=== PATIENT | female | born 1985 ===

== ENCOUNTER 2018-05-02 12:30 | Inpatient (IN) ==
[2018-05-02 11:59] LABS: Basophils % 0.1 %; Eosinophils % 0.5 %; Hematocrit 32.8 % (35.3-44.9); Hemoglobin 10.5 g/dL (11.5-15.4); Immature Granulocytes % 0.6 % (0-4); Lymphocytes # 1.8 K/mcL (0.6-4.6); Mean Corpuscular Hemoglobin 28.5 pg (28.0-33.3); Mean Corpuscular Volume 88.9 fL (83.0-100.0); Mean Platelet Volume 10.9 fL (9.4-12.4); Monocytes # 0.6 K/mcL (0.0-1.3); Monocytes % 6.8 %; Neutrophils # 6.2 K/mcL (1.6-8.9); Platelet Count 257 K/mcL (140-400); Red Blood Count 3.69 M/mcL (3.82-4.97); Red Cell Distribution Width 13.8 % (11.5-14.5)
[2018-05-02 12:05] LABS: Bilirubin,Urine Negative (Negative); Blood,Urine Negative (Negative); Color,Urine Yellow (Yellow); Glucose,Urine (UA) Normal (Normal); Ketones,Urine Negative (Negative); Leukocyte Esterase,Urine Negative (Negative); Nitrite,Urine Negative (Negative); Protein,Urine Negative (Neg-Trace); Specific Gravity,Urine 1.009 (1.010-1.025); Urobilinogen,Urine Normal (Normal)
[2018-05-02 12:06] LABS: Bacteria,Urine Moderate per hpf (None-Few); Hyaline Casts,Urine None Seen per lpf (None-Few); RBC,Urine 0-3 per hpf (0-3); Squamous Epithelial Cell,Urine Many per lpf (None-Few)
[2018-05-02 12:09] LABS: Clarity,Urine Hazy (Clear)
[2018-05-02 12:16] LABS: Amphetamine Screen,Urine Negative ng/mL (Cutoff=1000); Barbiturate Screen,Urine Negative ng/mL (Cutoff=200); Benzodiazepines Screen,Urine Negative ng/mL (Cutoff=200); Cannabinoid Screen,Urine Negative ng/mL (Cutoff = 50); Cocaine Screen,Urine Negative ng/mL (Cutoff= 300); Creatinine,Urine 77 mg/dL; Opiate Screen,Urine Negative ng/mL (Cutoff=300); Phencyclidine Screen,Urine Negative ng/mL (Cutoff=25); Protein/Creatinine Ratio,Urine 0.16 mg/mg (0.00-0.20)
[2018-05-02 12:27] LABS: Alanine Aminotransferase 9 Units/L (7-52); Aspartate Amino Transferase 10 Units/L (13-39); BUN/Creatinine Ratio 13 (6-26); Blood Urea Nitrogen 6 mg/dL (6-20); Lactate Dehydrogenase 103 Units/L (140-271); Uric Acid 3.4 mg/dL (2.3-7.6); eGFR For Non-African Americans > 60 (> 60)
[~2018-05-02 12:30] MED LIST: *HR* Nalbuphine 10 MG/ML AMPUL IVP PRN; Famotidine 20 MG/2 ML VIAL IVP PRN; Metoclopramide 10 MG/2 ML VIAL IVP PRN; Naloxone 0.4 MG/ML INJ IVP PRN; Ondansetron 4 MG/2 ML VIAL IVP PRN; Ringers Solution, Lactated 1,000 ML IVC SCH
--- NOTE | 2018-05-02 13:39 | OB/GYN Progress Note ---
Date of Encounter: 05/02/18 Time of Encounter: 13:38 - Assessment and Plan (1) 38 weeks gestation of Status: Acute 32 y/o @ 38+1 weeks presented to L&D for tox eval, her pressures in the office were in the severe range but on L&D, her pressures were normal, patient has polyhydramnios and we were unable to get a reactive tracing as it was difficult to trace heart rate, tox labs normal, patient transferred t the office for BPP which was 11/24. Objective - Vital Signs Vital Signs: Intake and Output 05/01/18 05/02/18 05/02/18 23:59 07:59 15:59 Other: Weight 103.7 kg Patient Weight 05/02/18 23:59 Weight 103.7 kg - Labs Labs: Abnormal lab results RBC 3.69 M/mcL (3.82-4.97) L 05/02/18 11:40 Hgb 10.5 g/dL (11.5-15.4) L 05/02/18 11:40 Hct 32.8 % (35.3-44.9) L 05/02/18 11:40 Creatinine 0.46 mg/dL (0.60-1.20) L 05/02/18 11:40 AST 10 Units/L (13-39) L 05/02/18 11:40 Lactate Dehydrogenase 103 Units/L (140-271) L 05/02/18 11:40 Ur Specimen Adequacy See below A 05/02/18 11:40 Urine Clarity Hazy (Clear) A 05/02/18 11:40 Ur Specific [place] 1.009 (1.010-1.025) L 05/02/18 11:40 Ur Squamous Epith Cells Many per lpf (None-Few) H 05/02/18 11:40 Urine Bacteria Moderate per hpf (None-Few) H 05/02/18 11:40
== END 2018-05-02 17:04 | disposition other institution (70) | DRG 833 ==
LOC: 1NENULAB
PROVIDERS: ADMIT Student in an Organized Health Care Education/Training Program; ATTEND Student in an Organized Health Care Education/Training Program

== ENCOUNTER 2018-05-08 07:05 | Inpatient (IN) ==
[2018-05-08] MEDS ORDERED: Metoclopramide 10 MG/2 ML VIAL IVP PRN (07:37)
[2018-05-08] MEDS ORDERED: Famotidine 20 MG/2 ML VIAL IVP PRN (07:37)
[2018-05-08] MEDS ORDERED: *HR* Nalbuphine 10 MG/ML AMPUL IVP PRN (07:37)
[2018-05-08] MEDS ORDERED: Naloxone 0.4 MG/ML INJ IVP PRN ×3 (07:37→20:46)
[2018-05-08] MEDS ORDERED: Ondansetron 4 MG/2 ML VIAL IVP PRN ×3 (07:37→20:44)
[2018-05-08] MEDS ORDERED: miSOPROStol 25 MCG TABLET VG PRN (07:55)
[2018-05-08 08:06] LABS: Basophils % 0.1 %; Eosinophils % 0.4 %; Hematocrit 32.9 % (35.3-44.9); Hemoglobin 10.7 g/dL (11.5-15.4); Immature Granulocytes % 0.6 % (0-4); Lymphocytes # 1.9 K/mcL (0.6-4.6); Lymphocytes % 21.4 %; Mean Corpuscular HGB Conc 32.5 g/dL (31.6-35.5); Mean Corpuscular Hemoglobin 28.8 pg (28.0-33.3); Mean Corpuscular Volume 88.4 fL (83.0-100.0); Mean Platelet Volume 10.9 fL (9.4-12.4); Monocytes # 0.6 K/mcL (0.0-1.3); Monocytes % 6.1 %; Neutrophils # 6.5 K/mcL (1.6-8.9); Platelet Count 263 K/mcL (140-400); Red Blood Count 3.72 M/mcL (3.82-4.97); Red Cell Distribution Width 13.7 % (11.5-14.5); Segmented Neutrophils % 71.4 %
[2018-05-08] MEDS: Ringers Solution, Lactated 1,000 ML IVC SCH ×2 (08:22→16:06)
[2018-05-08 08:46] LABS: Amphetamine Screen,Urine Negative ng/mL (Cutoff=1000); Barbiturate Screen,Urine Negative ng/mL (Cutoff=200)
[2018-05-08 08:47] LABS: Benzodiazepines Screen,Urine Negative ng/mL (Cutoff=300); Cannabinoid Screen,Urine Negative ng/mL (Cutoff = 50); Cocaine Screen,Urine Negative ng/mL (Cutoff= 300); Opiate Screen,Urine Negative ng/mL (Cutoff=300); Phencyclidine Screen,Urine Negative ng/mL (Cutoff=25)
--- NOTE | 2018-05-08 09:36 | OB/GYN History & Physical ---
Date of Encounter: 05/08/18 Time of Encounter: 09:35 Assessment and Plan (1) 39 weeks gestation of Current visit: Yes Status: Acute 32 y/o @ 39 weeks, IOL for polyhydramnios GBS- Plan: Cytotec given @ 8:15AM, will re evaluate after 4hrs, will AROM with advanced dilation, anticipate , ok for epidural if she desires History of Present Illness HPI: Ms. Culver is a 32 year old female @ 39+0 weeks who presents to L&D for IOL due to polyhydramnios. She does not report LOF, VB, having some contractions, feels good FM, GBS neg. Past Med Surg Social Fam HX - Past Medical History Medical history: non-contributory Additional medical history: broken tailbone in due to fall, slight scol iosis Psychiatric history: no psych history - Past Surgical History Surgical History: non-contributory Additional surgical history: wisdom teeth extraction, fatty tumor removed - Social History Smoking Status: Former smoker Alcohol use: none Drug use: none - Family History Father Living Status: Still Living Hx Family Cardiac Disorders: Yes (heart disease, HTN) Hx Family Respiratory Disorders: Yes (ASTHMA, COPD) Hx Family Cancer: Yes (lung) Hx Family GI Disorders: No Hx Family Endocrine Disorder: No Hx Family Neuromuscular Disorders: No Hx Family Neurologic Disorders: No Hx Family HEENT Disorders: No Hx Family Autoimmune Disorders: No Son Living Status: Still Living Mother Living Status: Still Living Hx Family Endocrine Disorder: Yes (DM) Hx Family Psychosocial Disorders: Yes Obstetrical History - Pregnancies : 5 Para: 3 Medications and Allergies One Tablet 1 tab PO DAILY 02/26/18 [History] Allergy/AdvReac Type Severity Reaction Status Date / Time No Known Allergies Allergy Verified 05/02/18 11:19 Review of System OB All systems PM: reviewed and no additional remarkable complaints except as stated Exam - Constitutional Constitutional: no acute distress - HEENT HEENT: PERRL - Neck Neck exam: full ROM - Lungs Respiratory exam: CTAB - Cardiovascular Cardiovascular exam: RRR - Abdomen Abdomen: Present: gravid - Cervix Dilation: 2 Results Result Diagrams: 05/08/18 07:45 Abnormal lab results RBC 3.72 M/mcL (3.82-4.97) L 05/08/18 07:45 Hgb 10.7 g/dL (11.5-15.4) L 05/08/18 07:45 Hct 32.9 % (35.3-44.9) L 05/08/18 07:45 All other labs normal. - VTE Reasons for not Prescribing Prophylaxis: Treatment not Indicated - Low risk for VTE
[2018-05-08] MEDS ORDERED: Oxytocin 20 units/ LR 1000 mL 20 UNIT/1,000 ML BAG IVC ONE (12:14)
--- NOTE | 2018-05-08 12:17 | OB Labor Progress Note ---
Date of Encounter: 05/08/18 Time of Encounter: 12:15 Labor Progress Note - Subjective Subjective: patient is feeling more of her ctxs - Vital Signs Vital Signs: VSS - Cervix Cervix: 2-3cm/70% - Heart Tones Heart Tones: CAT 1 - Plan Plan: will AROM with advanced dilation, ok for epidural, anticipate
[2018-05-08] MEDS ORDERED: Oxytocin 20 units/ LR 1000 mL 20 UNIT/1,000 ML BAG IVC SCH ×3 (12:30→20:07)
[2018-05-08] MEDS ORDERED: *HR* FentaNYL (PF) 100 MCG/2 ML VIAL EP ONE (13:27)
[2018-05-08] MEDS ORDERED: Bupivacaine-MPF 0.25% 10 ML VIAL EP ONE (13:27)
--- NOTE | 2018-05-08 13:29 | Anesthesia Evaluation PreOp ---
Addendum entered and electronically signed by Alexander Price CRNA 05/08/18 16:54: notified by L&D staff around 1545 of need to perform urgent for category 2 heart rate tracing. Patient reports adequate analgesia with KLEVER. Explained R/B/A of epidural anesthesia (plan A) vs. GETA (plan B). Patient verbalizes understanding and agrees to proceed. Confirmed NPO solids > 8hrs. No interval changes from that documented below. VSS Original Note: Date of Encounter: 05/08/18 Time of Encounter: 13:27 - Past History Planned Operation: KLEVER Cardiac History: Denies any Significant Hx Pulmonary History: Former smoker (quit at start of ; only smoked for one year) MORTGAGE ACCOUNTING CLERK History: Other ("slight scoliosis") Other Medical History: Other (polyhydramnios) Anesthesia History: No Prior Anesthetic Complications (KLEVER x 1--no issues; never had any procedure requiring GA; denies family h/o GA complications) : Yes Test: Positive Alcohol Use: none Drug use: none Medications and Allergies One Tablet 1 tab PO DAILY 02/26/18 [History] Allergy/AdvReac Type Severity Reaction Status Date / Time No Known Allergies Allergy Verified 05/02/18 11:19 - Meds/Allergy Pre-op Review Medications Reviewed: Yes Allergies Reviewed: Yes Beta Blockers on Current Med List: No Anesthesia Results - Labs 05/08/18 07:45 Anesthesia Exam 112/63, HR 93, RR 14, pain 6/10 O2 Sat Height 1.68 m Weight 103.7 kg NPO (# of Hours): solids > 8hrs Pain Scale: 6 Pain Scale Used: Numeric (1 - 10) - HEENT Pupil (Motor): Pupils equal Mallampati: I Teeth: Normal Oral Opening: Greater than 3 - MORTGAGE ACCOUNTING CLERK LOC: Oriented MORTGAGE ACCOUNTING CLERK Motor: Normal RUE, Normal LUE, Normal RLE, Normal LLE, Normal Face MORTGAGE ACCOUNTING CLERK Sensory: Normal: RUE, LUE, RLE, LLE, Face - Cardiac Rhythm: Regular Murmur: None - Pulmonary Breath Sounds: bilateral Clear Respiratory Effort: Symmetrical Anesthesia Assess/Plan ASA Score: 2 Level of consciousness: Cooperative, Oriented, Tranquil Anesthetic Plan: Epidural Autologous Blood: No Monitoring Plan: Standard Monitors Recovery Plan: Other
[2018-05-08] MEDS ORDERED: Epidural Premix (fent/bupiv) 110 ML EP SCH (13:30)
[2018-05-08] MEDS ORDERED: Lidocaine -MPF 1% 5 ML AMPUL ONE (13:33)
[2018-05-08] MEDS ORDERED: Bupivacaine-MPF 0.25% 10 ML VIAL ONE (13:33)
[2018-05-08] MEDS ORDERED: *HR* FentaNYL (PF) 100 MCG/2 ML VIAL ONE (13:33)
[2018-05-08] MEDS ORDERED: EPHEDrine 50 MG/ML VIAL ONE (14:44)
--- NOTE | 2018-05-08 14:55 | Anesthesia Procedures ---
Addendum entered and electronically signed by Alexander Price CRNA 05/08/18 16:53: Delivery Date: 05/08/2018 Delivery Time: 1628 Original Note: Date of Encounter: 05/08/18 Time of Encounter: 14:53 Procedures: Anesthesia - Epidural/Spinal Patient ID/Chart reviewed: Yes Patient examined: Yes OB Eval: Gestational age: 39 weeks 0 days OB Eval: : 5 OB Eval: Hx Para: 3 OB Eval: Contractions: Non-stressed pattern Consent Obtained: Yes Supplemental Oxygen: None/Room Air Site Prep: Aseptic Technique, Sterile prep and drape, Povidone-Iodine 1% Patient position: upright Local Anesthetic: Lidocaine 1% Amount of Local Anesthetic used: 3 Touhy Needle Gauge: 18 Touhy Needle Depth (cm): 6 Catheter Depth at Skin (cm): 11 Test Dose (1.5% Lido + Epi): Volume given (mls): 5 Test Dose Result: Negative Loading Dose: 0.25% Marcaine (mls): 5 Loading Dose: Fentanyl (mcg): 100 Loading Dose Administered: Thru Catheter Infusion Med: 0.125% Bupivacaine w/ 2 mcg/ml Fentanyl Infusion Rate (mls/hr): 14 (demand bolus of 6mL q30min PRN) Catheter Secured in Place: Tegaderm, Tape Interspace Used: L4-L5 Loss of Resistance (AZUCENA): Yes Blood: No CSF: No Paresthesia: No Procedure: successful on 1st attempt; patient tolerated procedure well; One episode of hypotension immediately following loading dose that responded well to ephedrine administration by chief of staff doctor; otherwise VSS Vitals + FHT's: see M[facility] BREWER's electronic records for VS entry
[2018-05-08] MEDS ORDERED: Lidocaine/EPI 1:200k 2% PF 20 ML VIAL ONE (15:59)
--- NOTE | 2018-05-08 16:00 | OB Labor Progress Note ---
Date of Encounter: 05/08/18 Time of Encounter: 16:00 Labor Progress Note - Subjective Subjective: patient is comfortable s/p epidural - Vital Signs Vital Signs: VSS - Cervix Cervix: 4cm, patient AROM'ed - Heart Tones Heart Tones: CAT 2 tracing (recurrent caity decels) - Plan Plan: When I checked the patient, there was a hand presentation close to the head after AROM. I counseled the patient that since she is remote from delivery and given position as well as her CAT 2 tracing, I recommended a . She agreed. Anesthesia called, consents signed.
[2018-05-08] MEDS ORDERED: *HR* Oxytocin 10 UNIT/ML VIAL IM ONE ×3 (16:08→16:39)
[2018-05-08] MEDS ORDERED: Ringers Solution, Lactated 1,000 ML ONE (16:39)
[2018-05-08] MEDS ORDERED: *HR* Morphine Sulfate/PF 10 MG/10 ML AMPUL ONE (16:49)
[2018-05-08] MEDS ORDERED: Acetaminophen IV 1,000 MG/100 ML INFUS..BTL IVPB ONE (16:57)
[2018-05-08] MEDS ORDERED: *HR* Promethazine 25 MG/ML VIAL IVP PRN (16:57)
--- NOTE | 2018-05-08 17:16 | OB/GYN Procedure Note ---
Section - Date of procedure: 05/08/18 Preop diagnosis: category 2 FHT tracing, other (polyhydramnios) Post-op diagnosis: same Procedure: primary low transverse Surgeon: Darlene Contreras Was there an digital assistant present: Yes Carpentry Foreman: Macie Felder Anesthesia Type: Epidural section complications: none Disposition: L&D Recovery Room Specimens: Placenta, Cord blood - Narrative Narrative: The patient was taken to the operating room where epidural anesthesia was found to be adequate. The patient was prepped and draped in the usual sterile fashion in the dorsal supine position with a left-fernando tilt. A Pfannenstiel skin incision was made with the scalpel and carried through to the underlying layer of fascia. The fascia was incised in the midline and extended laterally. The superior and inferior aspects of the fascial incision were elevated, and the underlying rectus muscles were dissected off bluntly allowing easy access into the abdomen. The rectus muscles were dissected in the midline. The peritoneum was bluntly dissected, entered, and extended superiorly and inferiorly with good visualization of the bladder. The bladder blade was inserted. The lower uterine segment was incised in a transverse fashion using the scalpel and extended using manual traction. The infant was subsequently delivered atraumatically. There was a nuchal cord x1. The nose and mouth were bulb suctioned. The cord was clamped and cut. The infant was subsequently handed to the awaiting nursery nurse. The placenta was removed spontaneously intact with a 3-vessel cord noted. The uterus was exteriorized and cleared of all clots and debris. The uterine incision was repaired in 2 layers using 0 vicryl suture. Hemostasis was visualized. The uterus was returned to the abdomen. The uterine incision was reexamined and was noted to be hemostatic. The fascia was closed with 0 Vicryl, the subcutaneous layer was closed with 3-0 vicryl, and the skin was closed with 4-0 vicryl. Sponge, lap, and instrument counts were correct x2. The patient was stable at the completion of the procedure and was subsequently transferred to the recovery room in stable condition.
--- NOTE | 2018-05-08 17:22 | Anesthesia Evaluation Post Op ---
Date of Encounter: 05/08/18 Time of Encounter: 17:21 - Vital Signs Vital Signs: 82/63, HR 118, SpO2 96%, T98.8F, RR14 - Lungs Lungs: Clear Ascult./Percussion - Airway Airway: Non-obstructed - Cardiovascular Regular Rate - Mental Status Mental Status: Alert & Oriented, Answers Appropriately - Pain Pain Scale: 0 Pain Scale used: Numeric (1 - 10) - Nausea Vomiting Nausea Vomiting: Not Present - Hydration Hydration: NPO, Terry catheter - Discharge PostOp Status: Transfer Patient to floor
[2018-05-08] MEDS ORDERED: Measles/Mumps/Rubella Vacc 0.5 ML VIAL SQ PRN (20:07)
[2018-05-09] MEDS: Ibuprofen 600 MG TABLET PO PRN ×3 (00:29→17:33)
[2018-05-09] MEDS ORDERED: Lanolin 7 G OINT...G. TP PRN (03:27)
[2018-05-09] MEDS: *HR* HYDROcodone/Acet 5/325 mg TABLET PO PRN ×3 (06:06→23:30)
[2018-05-09 06:28] LABS: Basophils % 0.2 %; Eosinophils % 0.1 %; Hematocrit 27.5 % (35.3-44.9); Immature Granulocytes % 0.5 % (0-4); Lymphocytes # 1.2 K/mcL (0.6-4.6); Lymphocytes % 13.1 %; Mean Corpuscular HGB Conc 32.4 g/dL (31.6-35.5); Mean Corpuscular Hemoglobin 28.9 pg (28.0-33.3); Mean Corpuscular Volume 89.3 fL (83.0-100.0); Mean Platelet Volume 10.6 fL (9.4-12.4); Monocytes # 0.7 K/mcL (0.0-1.3); Monocytes % 7.4 %; Neutrophils # 7.4 K/mcL (1.6-8.9); Platelet Count 224 K/mcL (140-400); Red Blood Count 3.08 M/mcL (3.82-4.97); Red Cell Distribution Width 13.9 % (11.5-14.5); Segmented Neutrophils % 78.7 %
[2018-05-09 06:30] LABS: Hemoglobin 8.9 g/dL (11.5-15.4)
[2018-05-09] MEDS: Prenatal Vit/FA 1 EACH TABLET PO SCH (07:45)
--- NOTE | 2018-05-09 09:21 | OB/GYN Progress Note ---
Date of Encounter: 05/09/18 Time of Encounter: 09:18 - Assessment and Plan (1) Status post primary low transverse section Current Visit: Yes Status: Acute Continue routine postop/ care Patient meeting day 1 milestones anticipate discharge home tomorrow (2) Breast feeding status of mother Current Visit: Yes Status: Acute support prn Subjective - Subjective Principal diagnosis: /postop day 1 primary c/s Interval history: Patient is day one following primary c/s for non-reassuring heart tones. Patient is doing well. Denies any pain at this time. is currently breast feeding well. Patient reports: appetite normal, voiding normally, pain well controlled, ambulating normally : doing well, nursing well Objective - Vital Signs Latest vital signs: Vital Signs Temp Pulse Resp BP Pulse Ox 05/09/18 08:43 96/58 05/09/18 07:42 98.2 F 82 14 85/53 96 05/09/18 05:49 97.9 F 92 16 98/64 96 05/09/18 00:15 98.2 F 98 16 110/75 95 05/08/18 22:30 98.6 F 99 16 104/67 97 05/08/18 21:15 97.8 F 100 16 107/70 97 05/08/18 20:45 98.5 F 98 18 115/71 96 05/08/18 20:00 98.6 F 100 16 111/69 95 Intake and Output 05/08/18 05/09/18 05/09/18 23:59 07:59 15:59 Intake Total 0 / 0 720 / 720 600 / 600 Output Total 325 / 325 500 / 500 800 / 800 Balance -325 / -325 220 / 220 -200 / -200 Intake: IV Fluids 0 / 0 Lactated Ringers 1,000 ML @ 125 0 / 0 mls/hr IVC .Q8H [facility] Rx#: [id number] Oral 0 / 0 720 / 720 600 / 600 Output: Urine 800 / 800 Catheter 325 / 325 500 / 500 Other: Meal Breakfast Percent of Meal Consumed 100% Weight 99.1 kg Patient Weight 05/09/18 23:59 Weight 99.1 kg - Exam Lungs: bilateral: normal Chest: Normal S1, Normal S2 Extremities: Present: normal Abdomen: Present: normal appearance, soft, gravid Incision: Present: normal, dry, intact, other (steri strips) Uterus: Present: normal, firm Fundal Height: 2 (U/2) - Labs Labs: Laboratory Results - last 24 hr 05/08/18 05/09/18 17:35 06:17 WBC 9.4 RBC 3.08 L Hgb 8.9 L D Hct 27.5 L MCV 89.3 MCH 28.9 MCHC 32.4 RDW 13.9 Plt Count 224 MPV 10.6 Immature Gran % 0.5 Seg Neutrophils % 78.7 Lymphocytes % 13.1 Monocytes % 7.4 Eosinophils % 0.1 Basophils % 0.2 Neutrophils # 7.4 Lymphocytes # 1.2 Monocytes # 0.7 Eosinophils # 0.0 Basophils # 0.0 Baby's Blood Type O RH POSITIVE Mother's Blood Type O RH NEGATIVE Rhogam Indicated YES
[2018-05-09] MEDS ORDERED: Rho Immune Globulin 1,500 UNIT SYRINGE IM ONE (11:23)
[2018-05-09] MEDS ORDERED: MOM Conc 10 ML UD.LIQ PO PRN (17:13)
[2018-05-09] MEDS: Simethicone 80 MG TAB.CHEW PO PRN (17:27)
[2018-05-10] MEDS: Ibuprofen 600 MG TABLET PO PRN (04:07)
[2018-05-10 07:50] VITALS: BP 109/73
[2018-05-10] MEDS: Prenatal Vit/FA 1 EACH TABLET PO SCH (08:07)
[2018-05-10] MEDS: Simethicone 80 MG TAB.CHEW PO PRN (08:07)
--- NOTE | 2018-05-10 10:18 | Discharge Summary ---
Date of Encounter: 05/10/18 Time of Encounter: 10:14 - Discharge Diagnosis (1) Status post primary low transverse section Priority: Primary Status: Acute Comments: Pain well managed, tolerates po diet, meeting PP milestones, , desires discharge. - Discharge Medications Prescriptions: HYDROcodone/Acet 5/325 mg [[place] 5-325 mg] 1 tab PO Q6HR PRN 5 Days #20 tablet PRN Reason: Moderate Pain (4-6) Ibuprofen [Motrin] 600 mg PO Q6HR PRN #60 tablet PRN Reason: Cramping Docusate [Colace] 100 mg PO BID #30 capsule Ferrous Sulfate 325 mg PO BIDWM #60 tablet Home Medications: One Tablet 1 tab PO DAILY 02/26/18 [History] Docusate [Colace] 100 mg PO BID #30 capsule 05/10/18 [Rx] Ferrous Sulfate 325 mg PO BIDWM #60 tablet 05/10/18 [Rx] HYDROcodone/Acet 5/325 mg [[place] 5-325 mg] 1 tab PO Q6HR PRN 5 Days #20 tablet 05/10/18 [Rx] Ibuprofen [Motrin] 600 mg PO Q6HR PRN #60 tablet 05/10/18 [Rx] Lanolin [Lansinoh] 1 appl TP TID PRN oint...g. 05/10/18 [Rx] MOM Conc [MILK OF MAGNESIA conc] 10 ml PO DAILY PRN ud.liq 05/10/18 [Rx] Simethicone [Gas-X] 80 mg PO TID PRN tab.chew 05/10/18 [Rx] Allergies/Adverse Reactions: Allergy/AdvReac Type Severity Reaction Status Date / Time No Known Allergies Allergy Verified 05/02/18 11:19 Data Procedures and tests throughout hospitalization: Laboratory Tests 05/08/18 05/08/18 05/08/18 07:37 07:45 17:35 WBC 9.1 RBC 3.72 L Hgb 10.7 L Hct 32.9 L MCV 88.4 MCH 28.8 MCHC 32.5 RDW 13.7 Plt Count 263 MPV 10.9 Immature Gran % 0.6 Seg Neutrophils % 71.4 Lymphocytes % 21.4 Monocytes % 6.1 Eosinophils % 0.4 Basophils % 0.1 Neutrophils # 6.5 Lymphocytes # 1.9 Monocytes # 0.6 Eosinophils # 0.0 Basophils # 0.0 Urine Opiates Screen Negative Ur Barbiturates Screen Negative Ur Phencyclidine Scrn Negative Ur Amphetamines Screen Negative U Benzodiazepines Scrn Negative Urine Cocaine Screen Negative U Marijuana (THC) Screen Negative Ur Drug Screen Interp See Below Screen NEGATIVE Baby's Blood Type O RH POSITIVE Mother's Blood Type O RH NEGATIVE Rhogam Indicated YES Rhogam Req for Mother 1 05/09/18 06:17 WBC 9.4 RBC 3.08 L Hgb 8.9 L D Hct 27.5 L MCV 89.3 MCH 28.9 MCHC 32.4 RDW 13.9 Plt Count 224 MPV 10.6 Immature Gran % 0.5 Seg Neutrophils % 78.7 Lymphocytes % 13.1 Monocytes % 7.4 Eosinophils % 0.1 Basophils % 0.2 Neutrophils # 7.4 Lymphocytes # 1.2 Monocytes # 0.7 Eosinophils # 0.0 Basophils # 0.0 Urine Opiates Screen Ur Barbiturates Screen Ur Phencyclidine Scrn Ur Amphetamines Screen U Benzodiazepines Scrn Urine Cocaine Screen U Marijuana (THC) Screen Ur Drug Screen Interp Screen Baby's Blood Type Mother's Blood Type Rhogam Indicated Rhogam Req for Mother Labs on day of discharge: Labs from last 24 hours 05/08/18 17:35 Screen NEGATIVE Rhogam Req for Mother 1 Date of admission: 05/08/18 07:05 Primary care physician: PCP NONE Consults: 05/08/18 20:07 Consult to Filing Writer [CONS] Routine Comment: Vaginal delivery, consult needed Discharging clinician: Kaci Wagner Anticipated date of discharge: 05/10/18 - Patient Status Disposition: Home, Self-Care Condition: Good Functional capacity at discharge: independent ambulation Overall status at discharge: patient is progressing back to baseline - Discharge Instructions Follow Up With: NONE,PCP [Primary Care Provider] - Darlene Contreras MD [Partnered Physician] - - Diet and Activity Activity: resume usual activities as tolerated Diet: regular diet Hospital Course Reason for admission: section Delivery: section Episiotomy: none Laceration: none Other procedures: none complications: none Discharge diagnosis: IUP at term delivered [place] baby: male Hospital course: - Date of procedure: 01/20/19 Preop diagnosis: category 2 FHT tracing, other (polyhydramnios) Post-op diagnosis: same Procedure: primary low transverse Surgeon: Darlene Contreras Was there an music library assistant present: Yes Wetlands Conservation Laborer: Macie Felder Anesthesia Type: Epidural section complications: none Disposition: L&D Recovery Room Specimens: Placenta, Cord blood - Narrative Stable in PP and appropriate for discharge. OAARS reviewed. Time Attestation: Total time spent providing and/or coordinating discharge services: Time Spent: Less than 30 minutes - VTE Reasons for not Prescribing Prophylaxis: Treatment not Indicated - Low risk for VTE Documentation of Mechanical Device: Intermittent pneumatic compression device Exam - Constitutional Vitals: Temp Pulse Resp BP Pulse Ox 98.5 F 80 16 109/73 97 05/10/18 07:50 05/10/18 07:50 05/10/18 07:50 05/10/18 07:50 05/10/18 07:50 General appearance IM: A&O X 3 - Respiratory Respiratory exam: Present: CTAB - Cardiovascular Cardiovascular exam IM: Present: RRR - GI/Abdominal GI/Abdominal exam IM: soft - Uterine Tone: Firm Uterus Position: At Umbilicus - Extremities Exam Extremities exam IM: Present: normal capillary refill, pedal edema - Neurological Exam Neurological exam: normal gait, oriented X3 - Psychiatric Additional comments: reports good mood
== END 2018-05-10 13:50 | disposition home or self-care (01) | DRG 788 ==
LOC: 1NENULAB 07:05 → 1NENUOBS 20:06
PROVIDERS: ADMIT Student in an Organized Health Care Education/Training Program; ATTEND Student in an Organized Health Care Education/Training Program